=== PATIENT | female | born 1995 | race Caucasian/White ===

== ENCOUNTER → 2017-08-10 09:58 | Outpatient (CLI) | payer OTHER, SELFPAY ==
[2017-08-10 11:14] LABS: Glucose GTT-Gestation. Fasting 71 mg/dL (<105)
[2017-08-10 12:55] LABS: Glucose GTT-Gestational 2 Hr 129 mg/dL (<165)
[2017-08-10 12:58] LABS: Glucose GTT-Gestational 1 Hr 126 mg/dL (<190)
[2017-08-10 15:29] LABS: Glucose GTT-Gestational 3 Hr 132 L (<145)
== END ==
PROVIDERS: Family Provider Family Medicine; PCP Family Medicine; Visit Provider Obstetrics & Gynecology
DX: R73.02 Impaired glucose tolerance (oral) (principal)
CPT/HCPCS: 36415; 82951; 82952

== ENCOUNTER → 2017-09-22 15:15 | Outpatient (CLI) | payer OTHER, SELFPAY ==
[2017-09-23 14:44] LABS: Group B Strep DNA By PCR Negative (Negative); Internal Control PASS; Probe Check PASS; Specimen Processing Control PASS
== END ==
PROVIDERS: Visit Provider Obstetrics & Gynecology
DX: Z36.85 Encounter for antenatal screening for Streptococcus B (principal)
CPT/HCPCS: 87081; 87653